=== PATIENT | male | born 1955 | race African-American/Black ===

== ENCOUNTER 2018-09-09 23:12 | Observation (INO) | payer BC ==
[~2018-09-09] VITALS: Ht 180.3 cm; Wt 104.7 kg
--- NOTE | ~2018-09-09 | HEMODYNAMI ---
PATIENT:SARAH HECTOR MEDICAL RECORD: [id number] : 55 LOCATION:[facility] D2109 ADMISSION DATE: 09/10/18 Generatedon:09/10/201811:17 Patient name: SARAH HECTOR Patient #: [id number] SSN: : 1955 Date of study: 09/10/2018 Page: Of Hemodynamic Procedure Report Patient Data Patient Demographics Procedure consent was obtained First Name: SARAH Gender: Male Last Name: KRUNAL : 1955 Patient #: [id number] Age: 63 year(s) Race: Black Additional ID: [id number] Contact details Address: [address] [place] [address] State: [place] City: [place] Zip code: [address] Past Medical History Allergies: No known allergies Admission Admission Data Admission Date: 09/10/2018 Admission Time: 0:17 Room #: 2109 Lab Results Lab Result Date: 09/10/2018 Lab Result Time: 0:00 Biochemistry Name Units Result Min Max BUN mg/dl 13 --(--*-)-- 7 18 Creatinine mg/dl 1 --(--*-)-- 0.6 1.3 CBC Name Units Result Min Max Hematocrit % 37.5 *-(----)-- 42 54 Hemoglobin g/dl 13.1 -*(----)-- 13.5 17.5 Procedure Procedure Types Cath Procedure Diagnostic Procedure [facility] w/Coronaries Sedation Charges Moderate Sedation up to 30 minutes PCI Procedure Coronary Stent Coronary Stent Initial Procedure Description Procedure Date Procedure Date: 09/10/2018 Procedure Start Time: 10:38 Procedure End Time: 11:10 Procedure Staff Name Function Larry Zavala MD Performing Physician Mercedes Alejandre RT Monitor July Rust RT Scrub Puja Hector RN Nurse Procedure Data Cath Procedure Fluoroscopy Diagnostic fluoroscopy Total fluoroscopy Time: 7.1 time: 7.1 min min Diagnostic fluoroscopy Total fluoroscopy dose: dose: 1779 mGy 1779 mGy Contrast Material Contrast Material Type Amount (ml) Isovue 300 186 Entry Location Entry Primary Successful Side Size Upsize Upsize Entry Closure Succes sful Closure Location (Fr) 1 (Fr) 2 (Fr) Remarks Device Remarks Femoral Right 5 Fr 6 Fr Exoseal artery Short Estimated blood loss: 10 ml Diagnostic catheters Device Type Used For End Catheter Placement MULTIPACK JL 4.0 5Fr Procedure catheter DIAGNOSTIC JL 5 5Fr Procedure catheter ([id number]) MULTIPACK 3DRC 5Fr Procedure catheter MULTIPACK Pigtail 5 Fr Procedure catheter Procedure Complications No complications Procedure Medications Medication Administration Route Dosage 0.9% NaCl I.V. 100 ml/hr Oxygen etCO2 Nasal cannula 2 l/min Lidocaine 2% added to field 20 Heparin Flush Bag added to field 2 bags (1000units/500ml NS) Versed I.V. 2 mg Fentanyl I.V. 50 mcg Zofran I.V. 4 mg Fentanyl I.V. 50 mcg Heparin Bolus I.V. 5000 units Plavix P.O. 75 mg Integrilin (Bolus I.C. 9.5 ml 2mg/ml) Hemodynamics Rest HGB: 13.1 (g/dl) Heart Rate: 75 (bpm) Pressure Samples Time Site Value (mmHg) Purpose Heart Use Rate(bpm) 10:45 LV 92/18,17 Snapshot 80 Gradients Valve Time Site Site Mean SEP/DFP Peak To Heart Use 1 2 (mmHg) (sec/min) Peak Rate (mmHg) (bpm) Aortic 10:45 LV AO 98 Snapshots Pre Cath Intra NCS Post Cath Vital Signs Time Heart Resp SPO2 etCO2 NIBP (mmHg) Rhythm Pain Sedation Rate (ipm) (%) (mmHg) Status Level (bpm) 10:18:07 66 22 96 26 142/89(112) NSR 0 (11) 10(A) , No pain 10:22:23 74 23 98 26.1 134/85(110) NSR 0 (11) 10(A) , No pain 10:26:31 79 15 96 26.8 116/84(103) NSR 0 (11) 10(A) , No pain 10:31:18 73 16 98 11.9 123/82(101) NSR 0 (11) 10(A) , No pain 10:35:29 71 14 99 8.9 122/77(101) NSR 0 (11) 10(A) , No pain 10:39:42 73 14 99 17.1 126/79(105) NSR 0 (11) 10(A) , No pain 10:44:36 75 19 98 30.6 124/85(97) NSR 0 (11) 9(A) , No pain 10:48:50 75 15 97 31.3 127/79(96) NSR 0 (11) 9(A) , No pain 10:52:58 72 17 96 29.1 114/76(94) NSR 0 (11) 9(A) , No pain 10:57:10 73 18 97 25.3 121/76(89) NSR 0 (11) 9(A) , No pain 11:01:22 73 19 96 25.3 119/77(99) NSR 0 (11) 9(A) , No pain 11:05:34 74 15 98 28.3 130/74(98) NSR 0 (11) 10(A) , No pain 11:09:46 74 15 98 28.3 122/83(96) NSR 0 (11) 10(A) , No pain Medications Time Medication Route Dose Verified Delivered Reason Notes Effectiveness by by 10:17:05 0.9% NaCl I.V. 100 Larry Puja used for ml/hr [place] [facility] procedure MD MONZON 10:17:13 Oxygen etCO2 2 Larry Puja used for Nasal l/min [facility] procedure cannula MD MONZON 10:17:20 Lidocaine 2% added 20ml Larry Juarez for local to vial [facility] anesthetic field MD CUBA 10:17:25 Heparin Flush added 2 Larry Larry used for Bag to bags [facility] procedure (1000units/500ml field MD CUBA NS) 10:36:04 Versed I.V. 2 mg Larry Puja for sedation [facility] Hector MD RN 10:36:09 Fentanyl I.V. 50 Larry Puja for sedation mcg [facility] Adrian Hector MD RN 10:40:24 Fentanyl I.V. 50 Larry Puja for sedation mcg [facility] Hector MD RN 10:44:20 Zofran I.V. 4 mg Larry Puja for nausea [facility] Hector MD RN 10:48:28 Heparin Bolus I.V. 5000 Larry Puja for verif ied units [facility] Hector anticoagulation with Dr. MD NA Wallace 10:50:53 Plavix P.O. 75 mg Larry Luo for [facility] Hector antiplatelet RN therapy 10:58:02 Integrilin I.C. 9.5 Larry Juarez for (Bolus 2mg/ml) ml [facility] Adrian Zavala antiplatelet MD CUBA therapy Procedure Log Time Note 10:02:14 Signed procedure consent form obtained from patient. 10:02:16 Diagnostic Cath status Elective 10:02:17 Time tracking: Regular hours (M-F 7:00 - 5:00) 10:02:22 Plan of Care:Hemodynamics will remain stable., Cardiac rhythm will remain stable., Comfort level will be maintained., Respiratory function will remain adequate., Patient/ family verbilizes understanding of procedure., Procedure tolerated without complication., Recovers from procedure without complications.. 10:02:31 July Rust RT(R) sent for patient. Start room use. 10:12:35 Patient received from Med II to CCL 1 Alert and oriented. Tansferred to table in Supine position. 10:12:37 Warm blankets applied, and will hugger turned on for patient comfort. 10:12:37 Correct patient and procedure confirmed by team. 10:12:38 ECG and BP/O2 sat monitors applied to patient. 10:16:52 Vital chart was started 10:17:05 0.9% NaCl 100 ml/hr I.V. was administered by Puja Hector RN; used for procedure; 10:17:13 Oxygen 2 l/min etCO2 Nasal cannula was administered by Puja Hector RN; used for procedure; 10:17:20 Lidocaine 2% 20ml vial added to field was administered by Larry Zavala MD; for local anesthetic; 10:17:25 Heparin Flush Bag (1000units/500ml NS) 2 bags added to field was administered by Larry Zavala MD; used for procedure; 10:20:49 WENT GROIN ON PATIENT DUE TO LABS PER DR. WALLACE 10:22:30 Baseline sample Acquired. 10:22:35 Rhythm: sinus rhythm 10:22:37 Full Disclosure recording started 10:22:38 Pre-procedure instructions explained to patient. 10:22:40 Pre-op teaching completed and patient verbalized understanding. 10:22:43 Family in patients room. 10:22:48 Patient allergic to No known allergies 10:22:50 Patient NPO since Midnight. 10:22:52 Is patient on blood thinner?No 10:22:53 Patient diabetic? No. 10:22:57 Previous problem with sedation/anesthesia? No ? 10:22:59 Snore? No 10:23:00 Sleep apnea? No 10:23:01 Deviated septum? No 10:23:02 Opens mouth fully? Yes 10:23:03 Sticks out tongue? Yes 10:23:05 Airway obstruction? No ? 10:23:16 Dentures? Yes PARTIAL IN 10:23:22 Pre procedure: right dorsailis pedis pulse 1+ Palpable, but thready & weak; easily obliterated 10:23:28 IV patent on arrival in left antecubital with 0.9% NaCl at [facility]. 10:24:02 Lab Result : BUN 13 mg/dl 10:24:02 Lab Result : Hemoglobin 13.1 g/dl 10:24:02 Lab Result : Creatinine 1 mg/dl 10:24:02 Lab Result : Hematocrit 37.5 % 10:24:18 Lab results completed and on chart. 10:24:22 Right groin area was prepped with chlora-prep and draped in sterile fashion 10:24:23 Alarms reviewed by R. N. 10:24:23 Sharps counted by scrub and verified by R.N. 10:24:29 Use device set Femoral Dx 10:24:30 ACIST Syringe (94933) opened to sterile field. 10:24:31 Bag Decanter (2002S) opened to sterile field. 10:24:34 ACIST Manifold (43217) opened to sterile field. 10:24:35 ACIST Hand Control (14004) opened to sterile field. 10:24:35 Tegaderm 4 x 4 (1626W) opened to sterile field. 10:24:37 Medline Cath Pack ([id number]) opened to sterile field. 10:24:37 DIAGNOSTIC WIRE .035 260cm J wire (099134) opened to sterile field. 10:24:38 DIAGNOSTIC Multipack 5Fr catheter set ([id number]) opened to sterile field. 10:24:39 SHEATH 5FR [place] (AKK597) opened to sterile field. 10:35:34 Zero performed for pressure channel P1 10:35:36 --------ALL STOP TIME OUT------ 10:35:37 Final Timeout: patient, procedure, and site verified with staff and physician. All members of the team are in agreement. 10:35:39 Right groin site verified by team. 10:35:46 Maximum allowable Isovue 300 dose 300ml. Physician notified. (300ml for normal creatinines. For patients with creatinine of 1.7 or higher multiply weight(kg) x 5 divided by creatinine.) 10:35:49 Fire Safety Assessment: A--An alcohol-based skin anteseptic being used preoperatively., C--Open oxygen or nitrous oxide is being used., D--An ESU, laser, or fiber-optic light is being used. 10:35:53 Physical assessment completed. ASA score P 2 - A patient with mild systemic disease as per Larry Zavala MD. 10:35:56 Sedation plan: IV Moderate Sedation Medication:Versed, Fentanyl 10:36:04 Versed 2 mg I.V. was administered by Puja Hector RN; for sedation; 10:36:09 Fentanyl 50 mcg I.V. was administered by Puja Hector RN; for sedation; 10:37:36 Procedure started. 10:38:05 Local anesthetic to right femoral artery with Lidocaine 2% by Larry Zavala MD.INITIAL ACCESS ONLY 10:38:35 A 5 Fr sheath was inserted into the Right Femoral artery 10:38:49 A MULTIPACK JL 4.0 5Fr catheter was advanced over the wire and used for Procedure. 10:39:48 Catheter removed. 10:39:59 UNABLE TO ENGAGE LCA 10:40:20 A DIAGNOSTIC JL 5 5Fr catheter ([id number]) was advanced over the wire and used for Procedure. 10:40:24 Fentanyl 50 mcg I.V. was administered by Puja Hector RN; for sedation; 10:41:58 LCA angiography performed. 10:42:01 Catheter removed. 10:42:35 A MULTIPACK 3DRC 5Fr catheter was advanced over the wire and used for Procedure. 10:44:20 Zofran 4 mg I.V. was administered by Puja Hector RN; for nausea; 10:44:31 RCA angiography performed. 10:44:32 Catheter removed. 10:44:38 A MULTIPACK Pigtail 5 Fr catheter was advanced over the wire and used for Procedure. 10:45:33 LV gram done using BORDEN 10:45:35 Injector settings: Ml/sec: 10, Volume: 20, 10:45:39 LV hemodynamics recorded. 10:45:52 EF : 30 % 10:45:53 Catheter removed. 10:46:34 SHEATH 6FR [place] (JIV474) opened to sterile field. 10:46:34 WHISPER 300cm guide wire ([id number]) opened to sterile field. 10:46:35 INFLATOR Merit BasixCompak (XS6499) opened to sterile field. 10:47:12 Sheath upsized to a 6 Fr Short. 10:47:27 GUIDE 6FR JL 5.0 catheter ([id number]) opened to sterile field. 10:48:28 Heparin Bolus 5000 units I.V. was administered by Puja Hector RN; for anticoagulation; verified with Dr. Wallace 10:48:38 6 Fr JL 5 guide catheter was inserted over the wire 10:50:41 WHIPSER 300 wire advanced. 10:50:53 Plavix 75 mg P.O. was administered by Puja Hector RN; for antiplatelet therapy; 10:51:45 Wire advanced across lesion. 10:53:54 Inflate balloon Inflation number: 1 A EUPHORA 2.25 x 15 Balloon ([id number]) was prepped and advanced across the Mid LAD , then inflated to 14 SABRINA for 0:15 (min:sec) . 10:54:28 Inflation number: 2 The EUPHORA 2.25 x 15 Balloon ([id number]) was reinflated across the Mid LAD , to 14 SABRINA for 0:15 (min:sec) . 10:54:59 Inflation number: 3 The EUPHORA 2.25 x 15 Balloon ([id number]) was reinflated across the Mid LAD , to 14 SABRINA for 0:00 (min:sec) . 10:56:47 Balloon removed over the wire. 10:58:02 Integrilin (Bolus 2mg/ml) 9.5 ml I.C. was administered by Larry Zavala MD; for antiplatelet therapy; 11:03:55 Place stent Inflation Number: 4 A ASHLEY OTW 3.0 x 38 stent ([id number]) was prepped and advanced across the Mid LAD . The stent was deployed at 16 SABRINA for 0:15 (min:sec) . 11:05:25 Inflation number: 5 The stent balloon was then re-inflated across the Mid LAD to 8 SABRINA for 0:00 (min:sec) . 11:06:38 Stent catheter was removed intact over wire. 11:06:39 Wire removed. 11:06:39 Guide catheter removed. 11:06:47 EXOSEAL 6Fr (EX600) opened to sterile field. 11:07:32 Sheath removed intact; hemostasis achieved with Exoseal to the Right Femoral artery. 11:07:35 Procedure ended.(Physican Out) 11:07:45 Fluoroscopy time 07.10 minutes. 11:07:49 Flurop Dose total: 1779 11:07:49 Fluoroscopy dose: 1779 mGy 11:07:52 Contrast amount:Isovue 300 186ml. 11:07:54 Sharps counted by scrub and verified by R.N. 11:07:56 Post-op/insertion site Right Femoral artery dressed using a 4 x 4 and Tegaderm. 11:07:59 Post-procedure physical assessment completed. ASA score P 2 - A patient with mild systemic disease as per Larry Zavala MD. 11:08:02 Post procedure rhythm: sinus rhythm 11:08:04 Estimated blood loss: 10 ml 11:08:06 Post procedure instruction explained to patient.Patient verbalizes understanding. 11:08:06 Patient needs reinforcement of post procedure teaching. 11:08:45 Procedure type changed to Cath procedure, Diagnostic procedure, LHC, LHC w/Coronaries, Sedation Charges, Moderate Sedation up to 30 minutes, PCI procedure, Coronary Stent, Coronary Stent Initial 11::53 Procedure and supply charges have been captured, reviewed, submitted and are correct. 11:09:55 Procedure Complication : No complications 11:09:59 Vital chart was stopped 11:10:00 See physician's report for complete and final results. 11:10:01 Report given to Med II. 11:10:06 Patient transfered to Med II with Bed. 11:10:08 Procedure ended. 11::08 Full Disclosure recording stopped 11:10:11 End room use (Document Last) Intervention Summary Intervention Notes Time ActionType Lesion and Equipment Action# Pressure Duration Attributes Used 10:53:54 Inflate Mid LAD EUPHORA 2.25 1 14 00:15 balloon x 15 Balloon ([id number]) 10:54:28 Reinflate Mid LAD EUPHORA 2.25 2 14 00:15 balloon x 15 Balloon ([id number]) 10:54:59 Reinflate Mid LAD EUPHORA 2.25 3 14 00:00 balloon x 15 Balloon ([id number]) 11:03:55 Place stent Mid LAD ASHLEY OTW 3.0 4 16 00:15 x 38 stent ([id number]) 11:05:25 Reinflate Mid LAD ASHLEY OTW 3.0 5 8 00:00 stent x 38 stent balloon ([id number]) Device Usage Item Name Manufacture Quantity Catalog Hospital Part Current Mini mal Lot# / Number Charge Number Stock Stock Serial# Code ACIST Syringe Acist 1 20586 815815 890846 239842 20 (37818) Medical Systems Inc Bag Decanter Microtek 1 2001S 054551 70605 304862 5 (2001S) Medical Inc. ACIST Acist 1 30968 642171 361968 538025 5 Manifold Medical (54592) Systems Inc ACIST Hand Acist 1 92428 463740 247216 798344 5 Control Medical (27857) Systems Inc Tegaderm 4 x 3M 1 1626W 800033 146530 218321 5 4 (1626W) Medline Cath Medline 1 [id number] 509998 47150 613161 5 Pack ([id number]) DIAGNOSTIC St Wiley 1 116168 929101 549328 126135 30 WIRE .035 260cm J wire (689681) DIAGNOSTIC Cardinal 1 IR2559 671231 22346 115509 30 Multipack 5Fr Health catheter set (ZY0937) SHEATH 5FR Terumo 1 WKU267 272027 579591 874603 5 [place] (IOX632) MULTIPACK JL Cardinal 1 354633 5 4.0 5Fr Health catheter DIAGNOSTIC JL Cardinal 1 [id number] 659051 789161 750291 5 5 5Fr Health catheter (292562D) MULTIPACK Cardinal 1 757105 5 3DRC 5Fr Health catheter MULTIPACK Cardinal 1 227439 5 Pigtail 5 Fr Health catheter SHEATH 6FR Terumo 1 UFT149 883828 299860 753032 40 [place] (WLG307) WHISPER 300cm Abreu 1 [id number] 498075 614020 481910 5 guide wire Vascular ([id number]) INFLATOR [facility] 1 UX7409 841626 357187 917853 15 [facility] Medical BasixCompak (OD0234) GUIDE 6FR JL Medtronic 1 [id number] 307030 78666 645474 1 5.0 catheter (FQ7CI78) EUPHORA 2.25 Medtronic 1 [id number] 264626 724867 999831 5 [id number] x 15 Balloon ([id number]) ASHLEY OTW 3.0 Medtronic 1 [id number] 500717 0500155 000507 5 [id number] x 38 stent ([id number]) EXOSEAL 6Fr Cardinal 1 EX600 736434 081043 336167 10 (EX600) Health Signature Audit [place] Stage Time Signature Unsigned Intra-Procedure 09/10/2018 Mercedes Alejandre 11:17:14 AM RT(R) Signatures Monitor : Mercedes Alejandre Signature : RT Date : Time : [place] [id number] [place] [address]
--- NOTE | ~2018-09-09 | HEMODYNAMI ---
PATIENT:SARAH HECTOR MEDICAL RECORD: [id number] : 55 LOCATION:[facility] D.2109 ADMISSION DATE: 09/10/18 Generatedon:09/13/201814:29 Patient name: SARAH HECTOR Patient #: [id number] SSN: : 1955 Date of study: 09/13/2018 Page: Of Hemodynamic Procedure Report Patient Data Patient Demographics Procedure consent was obtained First Name: SARAH Gender: Male Last Name: KRUNAL : 1955 Patient #: [id number] Age: 63 year(s) Race: Black Additional ID: [id number] Contact details [address]: [address] [place] [address] State: [place] City: [place] Zip code: [address] Past Medical History Allergies: No known allergies Admission Admission Data Admission Date: 09/10/2018 Admission Time: 0:17 Room #: D2109 Lab Results Lab Result Date: 09/10/2018 Lab Result Time: 0:00 Biochemistry Name Units Result Min Max BUN mg/dl 13 --(--*-)-- 7 18 Creatinine mg/dl 1 --(--*-)-- 0.6 1.3 CBC Name Units Result Min Max Hematocrit % 37.5 *-(----)-- 42 54 Hemoglobin g/dl 13.1 -*(----)-- 13.5 17.5 Procedure Procedure Types Cath Procedure PCI Procedure Coronary Stent Coronary Stent Initial Procedure Description Procedure Date Procedure Date: 09/13/2018 Procedure Start Time: 14:17 Procedure End Time: 14:28 Procedure Staff Name Function Larry Zavala MD Performing Physician Colette Eng RT Monitor Akhil Agarwal RT Scrub Uli Mc RN Nurse Procedure Data Cath Procedure Fluoroscopy Diagnostic fluoroscopy Total fluoroscopy Time: 1.7 time: 1.7 min min Diagnostic fluoroscopy Total fluoroscopy dose: 252 dose: 252 mGy mGy Contrast Material Contrast Material Type Amount (ml) Isovue 370 30 Entry Location Entry Primary Successful Side Size Upsize Upsize Entry Closure Succes sful Closure Location (Fr) 1 (Fr) 2 (Fr) Remarks Device Remarks Femoral Right 6 Fr Exoseal artery Short Estimated blood loss: 5 ml Procedure Complications No complications Procedure Medications Medication Administration Route Dosage 0.9% NaCl I.V. 100 ml/hr Oxygen etCO2 Nasal cannula 2 l/min Heparin Flush Bag added to field 2 bags (1000units/500ml NS) Lidocaine 2% added to field 20 Versed I.V. 2 mg Fentanyl I.V. Heparin Bolus I.V. 5000 units Hemodynamics Rest HGB: 13.1 (g/dl) Heart Rate: 78 (bpm) Snapshots Pre Cath Intra NCS Post Cath Vital Signs Time Heart Resp SPO2 etCO2 NIBP Rhythm Pain Sedation Rate (ipm) (%) (mmHg) (mmHg) Status Level (bpm) 14:04:56 76 24 100 29.2 127/80(91) NSR 0 (11) 10(A) , No pain 14:09:08 74 18 100 29.2 111/72(87) NSR 0 (11) 10(A) , No pain 14:13:12 75 16 97 31.3 109/77(88) NSR 0 (11) 10(A) , No pain 14:17:17 76 12 99 30.6 111/73(85) NSR 0 (11) 10(A) , No pain 14:21:23 79 18 98 28.4 105/75(83) NSR 0 (11) 10(A) , No pain 14:25:27 79 17 100 28.4 110/77(87) NSR 0 (11) 10(A) , No pain Medications Time Medication Route Dose Verified Delivered Reason Notes Effectiveness by by 14:04:23 0.9% NaCl I.V. 100 Uli Uli Per physician ml/hr Jesusita Mc RN RN 14:04:33 Oxygen etCO2 2 Uli Uli for low 02 sats Nasal l/min Jesusita Mc cannula RN RN 14:04:48 Heparin Flush added 2 Uli Uli used for Bag to bags Jesuista Mc procedure (1000units/500ml field NA RN NS) 14:05:01 Lidocaine 2% added 20ml Uli Uli for local to vial Jesusita cM anesthetic field MONZON RN 14:16:47 Versed I.V. 2 mg Uli Uli for sedation Jesusita Mc RN RN 14:16:54 Fentanyl I.V. Uli Mcnally for sedation Jesusita Mc RN RN 14:17:59 Heparin Bolus I.V. 5000 Uli Uli for units Jesusita Mc anticoagulation RN hoister Log Time Note 13:51:36 Informed consent obtained and on chart 13:51:39 Diagnostic Cath Status : Elective 13:52:04 Akhil Agarwal RT(R) sent for patient. Start room use. 13:52:05 Time tracking: Regular hours (M-F 7:00 - 5:00) 13:52:10 Plan of Care:Hemodynamics will remain stable., Cardiac rhythm will remain stable., Comfort level will be maintained., Respiratory function will remain adequate., Patient/ family verbilizes understanding of procedure., Procedure tolerated without complication., Recovers from procedure without complications.. 13:54:35 Patient received from Med II to CCL 2 Alert and oriented. Tansferred to table in Supine position. 13:54:36 Warm blankets applied, and will hugger turned on for patient comfort. 13:54:36 Correct patient and procedure confirmed by team. 13:54:37 ECG and BP/O2 sat monitors applied to patient. 14:03:56 Baseline sample Acquired. 14:03:56 Vital chart was started 14:04:00 Rhythm: sinus rhythm 14:04:01 Full Disclosure recording started 14:04:05 H&P Date Dictated: 09/13/2018 Within 30 days and on chart.. 14:04:06 Pre-procedure instructions explained to patient. 14:04:06 Pre-op teaching completed and patient verbalized understanding. 14:04:08 Family in waiting room. 14:04:09 Patient NPO since Midnight. 14:04:11 Is the patient allergic to Iodine/contrast media? No. 14:04:12 Was the patient premedicated? No 14:04:13 Is patient on blood thinner?Yes 14:04:20 ACC The patient was administered the following blood thiners within the last 24 hours: ACCPlavix 14:04:23 0.9% NaCl 100 ml/hr I.V. was administered by Uli Mc RN; Per physician; 14:04:33 Oxygen 2 l/min etCO2 Nasal cannula was administered by Uli Mc RN; for low 02 sats; 14:04:48 Heparin Flush Bag (1000units/500ml NS) 2 bags added to field was administered by Uli Mc RN; used for procedure; 14:05:01 Lidocaine 2% 20ml vial added to field was administered by Uli Mc RN; for local anesthetic; 14:14:47 Patient diabetic? No. 14:14:50 Previous problem with sedation/anesthesia? No ? 14:14:54 Snore? Yes 14:14:55 Sleep apnea? No 14:14:56 Deviated septum? No 14:14:57 Opens mouth fully? Yes 14:14:57 Sticks out tongue? Yes 14:14:59 Airway obstruction? No ? 14:15:02 Dentures? Yes in tight 14:15:05 Pre procedure: right dorsailis pedis pulse 2+ Normal; easily identifiable; not easily obliterated 14:15:07 Pre procedure: left dorsailis pedis pulse 2+ Normal; easily identifiable; not easily obliterated 14:15:09 Patient pain scale 0/10 ?. 14:15:14 IV patent on arrival in left forearm with 0.9% NaCl at [facility]. 14:15:16 Lab results completed and on chart. 14:15:20 Right groin area was prepped with chlora-prep and draped in sterile fashion 14:15:21 Alarms reviewed by R. N. 14:15:22 Sharps counted by scrub and verified by R.N. 14:15:23 Physician arrived 14:15:24 --------ALL STOP TIME OUT------ 14:15:24 Final Timeout: patient, procedure, and site verified with staff and physician. All members of the team are in agreement. 14:15:26 Right groin site verified by team. 14:15:29 Maximum allowable Isovue 370 dose 300ml. Physician notified. (300ml for normal creatinines. For patients with creatinine of 1.7 or higher multiply weight(kg) x 5 divided by creatinine.) 14:15:32 Fire Safety Assessment: A--An alcohol-based skin anteseptic being used preoperatively., C--Open oxygen or nitrous oxide is being used., D--An ESU, laser, or fiber-optic light is being used. 14:15:35 Physical assessment completed. ASA score P 2 - A patient with mild systemic disease as per Larry Zavala MD. 14:15:39 Sedation plan: IV Moderate Sedation Medication:Versed, Fentanyl 14:15:42 Use device set Femoral Dx 14:15:43 ACIST Syringe (92084) opened to sterile field. 14:15:44 Bag Decanter (2002S) opened to sterile field. 14:15:44 Medline Cath Pack ([id number]) opened to sterile field. 14:15:45 DIAGNOSTIC WIRE .035 260cm J wire (545981) opened to sterile field. 14:15:47 ACIST Hand Control (37528) opened to sterile field. 14:15:48 ACIST Manifold (26859) opened to sterile field. 14:15:50 Tegaderm 4 x 4 (1626W) opened to sterile field. 14:16:47 Versed 2 mg I.V. was administered by Uli Mc RN; for sedation; 14:16:54 Fentanyl I.V. was administered by Uli Mc RN; for sedation; 14:16:54 SHEATH 6FR [place] (THS807) opened to sterile field. 14:16:56 INFLATOR Merit BasixCompak (UG7644) opened to sterile field. 14:16:56 WHISPER 300cm guide wire ([id number]) opened to sterile field. 14:16:57 GUIDE 6FR HS II catheter ([id number]) opened to sterile field. 14:17:01 Procedure started. 14:17:04 Local anesthetic to right femoral artery with Lidocaine 2% by Larry Zavala MD.INITIAL ACCESS ONLY 14:17:13 A 6 Fr Short sheath was inserted into the Right Femoral artery 14:17:30 6 Fr hs 2 guide catheter was inserted over the wire 14:17:38 whisper wire advanced. 14:17:59 Heparin Bolus 5000 units I.V. was administered by Uli Mc RN; for anticoagulation; 14:18:39 Wire advanced across lesion. 14:23:24 Place stent Inflation Number: 1 A ASHLEY RX 3.0 x 18 stent ([id number]) was prepped and advanced across the Mid RCA 90. The stent was deployed at 20 SABRINA for 0:30 (min:sec) . 14:23:49 Stent catheter was removed intact over wire. 14::49 Wire removed. 14:23:50 Guide catheter removed. 14:24:01 EXOSEAL 6Fr (EX600) opened to sterile field. 14::55 Sheath removed intact; hemostasis achieved with Exoseal to the Right Femoral artery. 14:24:58 Procedure ended.(Physican Out) 14:25:23 Fluoroscopy time 01.70 minutes. 14:25:30 Fluoroscopy dose: 252 mGy 14:25:30 Flurop Dose total: 252 14::51 Contrast amount:Isovue 370 30ml. 14:25:54 Sharps counted by scrub and verified by R.N. 14::55 Insertion/operative site no bleeding no hematoma. 14::58 Post-op/insertion site Right Femoral artery dressed using a 4 x 4 and Tegaderm. 14:26:01 Post right femoral artery:stable 14:26:03 Post Procedure Pulses reassessed and unchanged 14:26:07 Post procedure rhythm: unchanged. 14:26:10 Estimated blood loss: 5 ml 14:26:11 Post procedure instruction explained to patient.Patient verbalizes understanding. 14:26:12 Patient needs reinforcement of post procedure teaching. 14:26:43 Procedure type changed to Cath procedure, PCI procedure, Coronary Stent, Coronary Stent Initial 14::44 Procedure and supply charges have been captured, reviewed, submitted and are correct. 14::49 Procedure Complication : No complications 14:26:51 Vital chart was stopped 14:26:52 See physician's report for complete and final results. 14:28:12 Report given to [facility]. 14:28:15 Patient transfered to [facility] with Stretcher. 14:28:17 Procedure ended. 14:28:17 Full Disclosure recording stopped 14:28:36 ACC-PCI Only Patient was given prescriptions, or instructed by Larry Zavala MD to start/continue the following medications upon discharge: Plavix 14:28:38 End room use (Document Last) Intervention Summary Intervention Notes Time ActionType Lesion and Equipment Used Action# Pressure Duration Attributes 14:23:24 Place stent Mid RCA ASHLEY RX 3.0 x 1 20 00:30 18 stent ([id number]) Device Usage Item Name Manufacture Quantity Catalog Hospital Part Current [facility] Lot# / Number Charge Number Stock Stock Serial# Code ACIST Syringe Acist 1 77182 137693 113573 390538 20 (58760) Medical Systems Inc Bag Decanter Microtek 1 2001S 460171 69987 279788 5 (2001S) Medical Inc. Medline Cath Medline 1 [id number] 736108 10918 174811 5 Pack ([id number]) DIAGNOSTIC St Wiley 1 845937 215738 583441 070997 30 WIRE .035 260cm J wire (163329) ACIST Hand Acist 1 93061 145867 262826 798137 5 Control Medical (57314) Systems Inc ACIST Manifold Acist 1 09060 139768 920548 753377 5 (63549) Medical Systems Inc Tegaderm 4 x 4 3M 1 1626W 248978 748353 965213 5 (1626W) SHEATH 6FR Terumo 1 [id number] 664239 413997 959323 40 [place] (VPB705) INFLATOR Merit Merit 1 KL7301 121780 364367 078072 15 [facility] ([id number]) WHISPER 300cm Abreu 1 [id number] 705490 380460 197456 5 guide wire Vascular ([id number]) GUIDE 6FR HS Medtronic 1 [id number] 896561 12678 026754 1 II catheter ([id number]) ASHLEY RX 3.0 x Medtronic 1 [id number] 339612 1126834 715179 5 [id number] 18 stent ([id number]) EXOSEAL 6Fr Cardinal 1 EX600 852672 872704 984517 10 (EX600) Health Signature Audit [place] Stage Time Signature Unsigned Intra-Procedure 09/13/2018 Colette Eng 2:29:12 PM RT(R) Signatures Monitor : Colette Eng RT Signature : Date : Time : [facility] [address] [place] [address]
[2018-09-09] MEDS ORDERED: VERAPAMIL HCL40 MG PO (23:21)
[2018-09-09] MEDS ORDERED: CALAN SR240 MG PO (23:22)
--- NOTE | 2018-09-09 23:28 | NUR ---
ASA 325 AND NITRO X 2 GIVEN AT [facility] WITH NO RELIEF.
[2018-09-10] VITALS (8 sets, daily range): BP systolic 105–130; BP diastolic 62–89; Ht 180.3 cm; Wt 104.7 kg
[2018-09-10 01:01] LABS: BASOPHILS 0.1 % (0-2); EOSINOPHILS 0.1 % (0-7); HEMATOCRIT 37.5 % (42.0-54.0); HEMOGLOBIN 13.1 g/dL (13.5-17.5); IMMATURE GRANULOCYTES 0.2 % (0-5); LYMPHOCYTES 16.5 % (15-50); MCH 31.2 pg (26.0-34.0); MCHC 34.9 g/dL (31.0-37.0); MCV 89.3 fL (80.0-100.0); MEAN PLATELET VOLUME 11.5 fL (7.4-10.4); MONOCYTES 6.1 % (2-11); PLATELET COUNT 145 10x3/uL (130-400); WBC 9.3 10x3/uL (4.8-10.8)
[2018-09-10 01:37] LABS: ALBUMIN 3.6 g/dL (3.4-5.0); ALKALINE PHOSPHATASE 59 U/L (46-116); ALT (SGPT) 33 U/L (10-68); BILIRUBIN - TOTAL 0.66 mg/dL (0.2-1.3); CALC OSMOLALITY 266 mosm/kg (275-300); CARBON DIOXIDE 21.9 mmol/L (21.0-32.0); CHLORIDE - SERUM 100 mmol/L (98-107); GLUCOSE 119 mg/dL (74-106); POTASSIUM - SERUM 4.7 mmol/L (3.5-5.1); PRO BNP 251 pg/mL (0-125); PROTEIN - SERUM 7.8 g/dL (6.4-8.2); SODIUM 133 mmol/L (136-145); UREA NITROGEN 13 mg/dL (7-18)
--- NOTE | 2018-09-10 01:40 | NUR ---
FROM ER VIA STRETCHER DENIES CP AT THIS TIME SKIN WARM AND DRY LCTA BOWEL SOUNDS X4 AND PULSES INTACT VS 105/62 82 22 98.3 97% RA
[2018-09-10 01:50] LABS: CALCIUM 7.2 mg/dL (8.5-10.1); CREATINE KINASE 918 UL (21-232)
[2018-09-10 01:51] LABS: eGFR NON AFRICAN AMERICAN 80 mL/min (90-120)
[2018-09-10 01:52] LABS: CKMB 2.6 U/L (0.0-3.6); TROPONIN-I 0.121 ng/mL (0.000-0.060)
--- NOTE | 2018-09-10 02:02 | NUR ---
TROPONIN NOTED AT .121 PT DENIES CP
[2018-09-10 07:19] LABS: CKMB 138.9 U/L (0.0-3.6); CREATINE KINASE 1531 UL (21-232)
--- NOTE | 2018-09-10 07:27 | NUR ---
ROUNDING DONE WITH PATIENT LAYING ON RIGHT SIDE, MALE MEMBER AT BEDSIDE. NPO STATUS AT THIS TIME. ON HEART MONITOR SHOWING SR, HR 74. LEFT AC PIV SEEN WITH SALINE LOCK. NEEDS ANOTHER EKG AT 11:00. DENIES ANY CHEST PAIN AT THIS TIME.
--- NOTE | 2018-09-10 07:58 | NUR ---
REFUSES SCD';S, UP AD BILLY.
[2018-09-10 08:41] LABS: BASOPHILS 0.1 % (0-2); EOSINOPHILS 0 % (0-7); HEMATOCRIT 36.1 % (42.0-54.0); HEMOGLOBIN 12.8 g/dL (13.5-17.5); IMMATURE GRANULOCYTES 0.2 % (0-5); LYMPHOCYTES 20.4 % (15-50); MCH 31.7 pg (26.0-34.0); MCHC 35.5 g/dL (31.0-37.0); MCV 89.4 fL (80.0-100.0); MEAN PLATELET VOLUME 12.1 fL (7.4-10.4); MONOCYTES 7.7 % (2-11); NEUTROPHILS 71.6 % (40-80); PLATELET COUNT 169 10x3/uL (130-400); RBC 4.04 10x6/uL (4.20-6.10); RDW 11.9 % (11.5-14.5); WBC 8.4 10x3/uL (4.8-10.8)
[2018-09-10 08:46] LABS: ANION GAP 13.7 mmol/L (8-16); CALCIUM 8.6 mg/dL (8.5-10.1); CARBON DIOXIDE 23.1 mmol/L (21.0-32.0); CREATININE - SERUM 1.1 mg/dL (0.6-1.3); POTASSIUM - SERUM 3.8 mmol/L (3.5-5.1)
--- NOTE | 2018-09-10 09:11 | NUR ---
PRE-OP MDS GIVEN, PLACED ON NASAL CANNULA AT 2 L PER,
--- NOTE | 2018-09-10 09:47 | CN ---
PATIENT NAME:GABBY HECTOR MEDICAL RECORD: [id number] : 55 LOCATION:D. D.2109 ADMIT DATE: 09/10/18 ACCOUNT: [id number] CONSULTING PHYSICIAN: IRMA VO MD REFERRING PHYSICIAN: SALVADOR LEE MD DATE OF CONSULTATION: 09/10/2018 HISTORY OF PRESENT ILLNESS: Gabby Hector is a 63-year-old gentleman with no known history of coronary artery disease, has a history of hypertension, strong family history of coronary artery disease, presented to [facility] with chest pain and also ____ sweating, chest tightness, pressure radiating to the jaw, found to have mildly elevated troponin at the [facility], referred here. Here, he had a further increase consistent with NSTEMI, he does have ST-T changes inferiorly. We are asked to see him concerning his cardiovascular status. PAST MEDICAL HISTORY: History of hypertension. ALLERGIES: None known. MEDICATIONS: Verapamil 240 mg p.o. every day. SOCIAL HISTORY: Nonsmoker, nondrinker. Works licensed clinician with heavy equipment. Easily takes care of all his ADLs, has been with an interesting sort of an exercise program, but is not currently. REVIEW OF SYSTEMS: The patient reports easy bruising but reports no swollen glands. The patient reports no fever, no night sweats, no significant weight gain, no significant weight loss. No significant exercise tolerance. The patient reports no dry eyes, no irritation, no vision change. Patient reports no difficulty hearing and no ear pain. Patient reports no frequent nose bleeds or nose and sinus problems. Patient reports on arm pain on exertion. No shortness of breath while lying down. No history of heart murmur. Patient reports no cough, no wheezing or coughing up blood. Patient reports no abdominal pain, no vomiting. Normal appetite. No diarrhea and not vomiting blood. No nausea and no constipation. Patient reports no incontinence. No difficulty urinating. No hematuria. No increased frequency. Patient reports no muscle aches. No weakness, no arthralgias, no back pain. No swelling of the extremities. Patient reports no abnormal mole, no jaundice, no rashes. Reports no loss of consciousness. No weakness and no numbness. No seizures, dizziness, or headaches. The patient reports no depression, no sleep disturbance, feeling safe in a relationship and no alcohol abuse. Patient reports on fatigue. Reports no runny nose or sinus pressure. No itching, no hives, and no frequent sneezing. PHYSICAL EXAMINATION: GENERAL: Pleasant. No acute distress. VITAL SIGNS: Blood pressure 119/72, pulse 70 and regular. HEENT: Normocephalic, atraumatic. NECK: No JVD or bruit. HEART: Regular, S4 gallop. LUNGS: Good air excursion. ABDOMEN: Soft, nontender. EXTREMITIES: Pulses 2+. No edema. CONSULT REPORT [id number] GABBY HECTOR DIAGNOSTIC DATA: ECG shows nonspecific ST changes, LVH versus ischemia. IMPRESSION: Non-ST elevation myocardial infarction, hypertension. PLAN: For angiography, intervention based on above. TRANSINT:[id number] Voice Confirmation ID: [id number] DOCUMENT ID: [id number] IRMA VO MD at 0947 CC: [id number] DICTATION DATE: 09/10/18 0844 POLICY MANAGER: 09/10/18 0921 ADM IN [place] [id number]
--- NOTE | 2018-09-10 10:03 | NUR ---
TO PAPER BAG INSPECTOR VIA BED.
--- NOTE | 2018-09-10 11:51 | NUR ---
1135-RETURNS FROM DELIVERY ROOM CLERK WITH DRESSING TO RIGHT GROIN, C/D/I.TO LAY FLAT X 4 HOURS.
--- NOTE | 2018-09-10 12:53 | NUR ---
PATIENT IS STILL VERY SLEEPY, STILL LAYING FLAT. FAMILY AT [facility].
--- NOTE | 2018-09-10 13:30 | NUR ---
ENESTRO AND LIPTOR MEDICATION PATIENT INSTRUCTIONS GIVEN TO FAMILY MEMBERS. PATIENT DENIES NEEDS.
[2018-09-10] MEDS ORDERED: PLAVIX75 MG PO (14:35)
[2018-09-10] MEDS ORDERED: LIPITOR20 MG PO (14:36)
[2018-09-10] MEDS ORDERED: ENTRESTO 24 MG1 EACH PO (14:36)
--- NOTE | 2018-09-10 15:04 | NUR ---
PAGE INTO DR VARELA TO SEE IF PATIENT CAN BE DISCHAGED.
--- NOTE | 2018-09-10 15:08 | NUR ---
DR VARELA TO CALL BACK AND TELL ME THAT DR VO WANTED PATIENT TO STAY OVER THE WEEKEND.
--- NOTE | 2018-09-10 15:37 | NUR ---
PATIENT SAT AT 30 DEGREES IN THE BED. NO BLEEDING SEEN TO RIGHT GROIN. FAMILY IS AT [facility].
--- NOTE | 2018-09-10 18:07 | NUR ---
NO SIGNS OF BLEEDING TO RIGHT GROIN. FAMLIY MEMBER AT [facility].
--- NOTE | 2018-09-10 19:42 | NUR ---
RECIEVED PT FROM NA REYNAGA. PT RESING IN BED ALERT AND ORIENTRED X4. R.GROIN SITE HAS BANDAGE C/D/I. THE AREA IS SOFT TO PALPATION. PT RUNNING 85 NORMAL SINUS ON TELEMETRY. PT BROTHER AT BEDSIDE. VITALS STABLE. NO S/S OF DISTRESS AT THIS TIME. BED LOW CALL LIGHT WITHIN REACH. WILL CONTINUE TO MONITOR.
--- NOTE | 2018-09-10 22:00 | NUR ---
PT WHATCHING TV WITH BROTHER AT THIS TIME. RR EVEN AND UNLABORED. PT DENIES ANY PAIN OR NEEDS AT THIS TIME. BED LOW CALL LIGHT WITHIN REACH. WILL CONTINUE TO MONITOR.
[2018-09-11] VITALS (9 sets, daily range): BP systolic 100–153; BP diastolic 58–88
--- NOTE | 2018-09-11 02:15 | NUR ---
I have reviewed this patient and I concur with the Shift Assessment completed by the Licensed Practical Nurse today this shift.
--- NOTE | 2018-09-11 02:53 | NUR ---
PT RESTING IN BED WITH EYES CLOSED RR EVEN AND UNLABORED. NO S/S OF DISTRESS. BED LOW CALL LIGHT WITHIN REACH. WILL CONTINUEN TO MONITOR.
--- NOTE | 2018-09-11 07:00 | NUR ---
RECEIVED REPORT. ASSUMED CARE OF PATIENT. RESTING IN BED WITH EYES OPEN. CALL LIGHT WITHIN REACH. PATIENT WITH MALE VISITOR AT BEDSIDE. PATIENT STATES HE IS WAITING FOR AM MEAL. RESP EVEN AND UNLABORD. NO DISTRESS. 86 SR ON TELEMETRY.
--- NOTE | 2018-09-11 09:30 | NUR ---
RESTING IN BED. TOLERATED PO MEDS WELL. CALL LIGHT WITHIN REACH. PATIENT BROTHER AT BEDSIDE. SHOWER COMPLETE. NO DISTRESS. DENIES NEEDS.
--- NOTE | 2018-09-11 16:02 | NUR ---
RESTING IN BED WITH EYES OPEN. FAMILY AT BEDSIDE. CALL LIGHT WITHIN REACH. NO DISTRESS.
--- NOTE | 2018-09-11 19:21 | NUR ---
REPORT RECIEVED AND ROUNDING COMPLETE. PATIENT LAYING IN BED HAS FAMILY AT BEDSIDE. PATIENT HAS RIGHT GROIN DRESSING THAT IS CLEAN, DRY AND INTACT. SITE IS SOFT. PATIENT HAS A RIGHT AC THAT IS SALINE LOCKED, NO S/SX OF INFILTRATION OR INFECTION. PATIENT STATES HAS NO NEEDS AT THIS TIME. CALL LIGHT WITHIN REACH AND BED IN LOWEST POSITON AND LOCKED.
[2018-09-11 23:30] LABS: APPEARANCE CLEAR (CLEAR); BILIRUBIN NEGATIVE (NEGATIVE); COLOR YELLOW (YELLOW); GLUCOSE NEGATIVE (NEGATIVE); KETONE NEGATIVE (NEGATIVE); NITRITE NEGATIVE (NEGATIVE); PROTEIN NEGATIVE (NEGATIVE); UROBILINOGEN NORMAL (NORMAL)
[2018-09-12 03:55] VITALS: BP 99/57
[2018-09-12 03:56] LABS: BASOPHILS 0.3 % (0-2); EOSINOPHILS 0.9 % (0-7); HEMATOCRIT 43.2 % (42.0-54.0); HEMOGLOBIN 15.2 g/dL (13.5-17.5); IMMATURE GRANULOCYTES 0.3 % (0-5); LYMPHOCYTES 33.3 % (15-50); MCH 31.8 pg (26.0-34.0); MCHC 35.2 g/dL (31.0-37.0); MCV 90.4 fL (80.0-100.0); MEAN PLATELET VOLUME 11.6 fL (7.4-10.4); MONOCYTES 13.6 % (2-11); NEUTROPHILS 51.6 % (40-80); PLATELET COUNT 150 10x3/uL (130-400); RBC 4.78 10x6/uL (4.20-6.10); RDW 12.2 % (11.5-14.5); WBC 9.3 10x3/uL (4.8-10.8)
[2018-09-12 04:02] LABS: ANION GAP 12.8 mmol/L (8-16); CALCIUM 8.5 mg/dL (8.5-10.1); CARBON DIOXIDE 24.1 mmol/L (21.0-32.0); POTASSIUM - SERUM 3.9 mmol/L (3.5-5.1)
[2018-09-12 04:05] LABS: CREATININE - SERUM 1.4 mg/dL (0.6-1.3)
--- NOTE | 2018-09-12 07:00 | NUR ---
RECIEVED REPORT. ASSUMED CARE OF PATIENT. CALL LIGHT WITHIN REACH. PATIENT LYING ON RIGHT LATERAL SIDE WITH EYES OPEN, RESP EVEN AND UNLABORED. DENIES NEEDS AT THIS TIME. NO DISTRESS.
[2018-09-12 08:02] VITALS: BP 97/55
--- NOTE | 2018-09-12 11:15 | NUR ---
RESTING IN BED. DENIES NEEDS. SHOWER COMPLETE. CALL LIGHT WITHIN REACH. NO DISTRESS.
[2018-09-12 11:50] VITALS: BP 111/62
--- NOTE | 2018-09-12 15:30 | NUR ---
VS STABLE. CALL LIGHT WITHIN REACH. DENIES NEEDS. NO DISTRESS.
[2018-09-12 16:03] VITALS: BP 93/60
--- NOTE | 2018-09-12 19:00 | NUR ---
PATIENT LAYING IN BED. NO COMPLAINTS AT THIS TIME. NO DISTRESS NOTED.
[2018-09-12 19:10] VITALS: BP 101/62
[2018-09-12 23:55] VITALS: BP 110/70
--- NOTE | 2018-09-13 01:00 | NUR ---
PATIENT LAYING IN BED. EYES CLOSED, CHEST RISING AND FALLING. NO DISTRESS NOTED.
--- NOTE | 2018-09-13 03:25 | NUR ---
I have reviewed this patient and I concur with the Shift Assessment completed by the Licensed Practical Nurse today this shift.
[2018-09-13 03:55] VITALS: BP 98/71
[2018-09-13 04:51] LABS: BASOPHILS 0.3 % (0-2); EOSINOPHILS 1.9 % (0-7); HEMOGLOBIN 13.7 g/dL (13.5-17.5); IMMATURE GRANULOCYTES 0.2 % (0-5); LYMPHOCYTES 34.6 % (15-50); MCH 31.3 pg (26.0-34.0); MCHC 34.3 g/dL (31.0-37.0); MCV 91.3 fL (80.0-100.0); MEAN PLATELET VOLUME 11.8 fL (7.4-10.4); MONOCYTES 11.5 % (2-11); NEUTROPHILS 51.5 % (40-80); PLATELET COUNT 149 10x3/uL (130-400); RBC 4.38 10x6/uL (4.20-6.10); RDW 12.1 % (11.5-14.5); WBC 8.8 10x3/uL (4.8-10.8)
[2018-09-13 05:16] LABS: ANION GAP 10.8 mmol/L (8-16); CALCIUM 8.4 mg/dL (8.5-10.1); CARBON DIOXIDE 26.9 mmol/L (21.0-32.0); CREATININE - SERUM 1.4 mg/dL (0.6-1.3); POTASSIUM - SERUM 3.7 mmol/L (3.5-5.1)
--- NOTE | 2018-09-13 07:45 | NUR ---
AM ROUNDS COMPLETED. INTRODUCED MYSELF TO PT PRIMARY RN FOR TODAYS SHIFT. PT IS A&O SITTING UP IN BED RESTING QUIETLY. SHIFT ASSESSMENT COMPLETED. PT IS NPO AFTER BREAKFAST FOR CATH PROCEDURE AND VERBALIZED UNDERSTANDING. PT FAMILIAR WITH PROCEDURE HE HAS JUST WENT THROUGH THIS A COUPLE DAYS AGO. RR NONLABORED ON RA AND S1S2 HEART SOUNDS NOTED RRR. PT DENIES ANY QUESTIONS OR PAIN OR NEEDS AT THIS TIME AND JUST WAITING PATIENTLY ON BREAKFAST. CL IN REACH, BED IN LOWEST, SIDE RAILS X2. WILL CPOC.
[2018-09-13 08:05] VITALS: BP 110/71
--- NOTE | 2018-09-13 09:45 | NUR ---
PROVIDED PT WITH ALL HIS MORNING MEDICATIONS ORDERED. PT ATE BREAKFAST AND WILL NOW BE NPO AND VERBALIZED UNDERSTANDING. PT IS WANTING TO GET INTO THE SHOWER. WRAPPED L.FA PIV AND PROVIDED PT WITH SUPPLIES. PT DENIES NEEDING ANY ASSISTANCE. CL IN REACH. WILL CTM.
--- NOTE | 2018-09-13 10:25 | NUR ---
PT COMPLETE WITH SHOWER SO I UNWRAPPED HIS PIV. PT IS SITTING UP IN BED AND DENIES ANY CURRENT NEEDS. PT STATES HE DOES HAVE INSURANCE SO I DID NOTIFY CASE MANAGEMENT TO UPDATE FILES HE DIDNT HAVE IT ON RECORD. CL IN REACH, FAMILY AT BEDSIDE NOW. WILL CPOC.
[2018-09-13 11:38] VITALS: BP 124/70
--- NOTE | 2018-09-13 14:58 | NUR ---
PT BACK FROM WIRELESS ARCHITECT AWAKE ALERT AND ORIENTED LYING FLAT IN BED. VSS AND BEING MONITERED PER POST PROCEDURE PROTOCOL. JEMMA HAS A DRSG CDI NO S/S OF BLEEDING OR HEMATOMA NOTED. PERIPHERAL PULSES INTACT. TELEMETRY BACK IN PLACE AND RUNNING NORMAL SINUS RHYTHM PER MONITER SAMY RAMÍREZ. FAMILY SURROUNDING BEDSIDE AND PT DENIES ANY CURRENT PAIN OR NEEDS AT THIS TIME. PT TO REMAINS FLAT X4HRS AND VERBALIZED UNDERSTANDING. NO CURRENT NEEDS. WILL CTM.
--- NOTE | 2018-09-13 15:06 | OP ---
PATIENT NAME: SARAH HECTOR MEDICAL RECORD: [id number] :55 LOCATION:D.M2 D.2109 ADMISSION DATE:09/10/18 SURGEON: IRMA VO MD DATE OF OPERATION: 09/10/2018 PROCEDURE: Left heart catheterization, selective coronary angiography, right femoral artery approach. CATHETERS: A 5-Malian sheath, 5/4 left and right Davin, 5/4 pig. The procedure was well tolerated. The patient returned to narvaez, sheath removed. ExoSeal device was placed. FINDINGS: Left ventriculography in 30-degree BORDEN view, severe anterior apical hypokinesis. Overall, function reduced at 35%. CORONARY ANATOMY: LEFT MAIN: Free of disease. LAD: Totally occluded in its mid portion. CIRCUMFLEX: Circumflex has a small OM with about 80% stenosis. RIGHT CORONARY ARTERY: Has a severe 90% stenosis in its proximal portion. Poor target distally. IMPRESSION: Plan intervention to the LAD, right at a later date in a staged fashion. DESCRIPTION OF PROCEDURE: A 5-Malian sheath was exchanged for a 6-Malian sheath. A JL3.5 guiding catheter provided good guide catheter support followed by 300 cm Whisper wire, which was placed across the totally occluded LAD down this portion of vessel. Next, this was followed by a 2.5 Euphora balloon, which was inflated up in the LAD, it was actually able to restore CAROLANN flow to 1. Next, we gave IC Integrilin with zoroastrianism of CAROLANN flow up to 2 and 3 proximally. Stent deployed was a 3.0 x 34 mm [place] drug-eluting stent up to 14 atmospheres. Final angiography shows excellent resolution of 100% stenosis, no significant residual. CAROLANN flow was improved to 3 proximally to distally. We will plan for staged intervention of the right in the near future. TRANSINT:[id number] Voice Confirmation ID: [id number] DOCUMENT ID: [id number] IRMA VO MD at 1506 CC: [id number] DICTATION DATE: 09/10/18 1116 AMMONIA SOLUTION PREPARER: 09/10/18 1218 [place] [address]
--- NOTE | 2018-09-13 15:49 | NUR ---
JEMMA DRSG REMAINS CDI NO S/S OF BLEEDING OR HEMATOMA NOTED. PERIPHERAL PULSES INTACT. VSS AND STILL BEING MONITERED. PT REMAINS LYING FLAT IN BED. DENIES ANY CURRENT PAIN OR NEEDS AT THIS TIME. CL IN REACH. FAMILY SURROUNDING BEDSIDE WILL CTM.
--- NOTE | 2018-09-13 17:01 | NUR ---
VSS AND STILL BEING MONITERED PER POST PROCEDURE POLICY. R.GROIN REMAINS CDI NO S/S OF BLEEDING OR HEMATOMA NOTED. PERIPHERAL PULSES INTACT. PT REMAINS FLAT IN BED. CL IN REACH, WILL CTM.
--- NOTE | 2018-09-13 18:45 | NUR ---
PTS 4HR LAY COMPLETED. R.GROIN REMAINS FREE OF BLEEDING OR S/S OF HEMATOMA. WILL BEGIN DISCHARGE PAPERWORK. ASSISTED PT UP IN BED TO SITUP. PT VOICED THANKS AND DENIES ANY PAIN OR NEEDS. WILL CONTINUE WITH PAPERWORK.
[2018-09-13 18:48] VITALS: BP 96/79
--- NOTE | 2018-09-14 08:52 | MORECARE ---
CASE MANAGEMENT DISCHARGE SUMMARY PATIENT: SARAH HECTOR UNIT: [id number] ADM DATE: 09/10/18 AGE: 63 : 55 SEX: M ROOM/BED: D.2109 AUTHOR: VALENTE FIGUEROA PHYSICIAN: REFERRING PHYSICIAN: SALVADOR LEE MD DATE OF SERVICE: 09/14/18 Discharge Plan [facility] 1955 Planned Disposition: Home Anticipated Discharge Date: 09/13/18 Discharge Date: 09/13/2018 Expected LOS: 3 Initial Reviewer: [email or web address] Initial Review Date: 09/14/2018 Generated: 09/14/18 9:52 am Patient Name: SARAH HECTOR Page [id number] at 0852 All edits/amendments must be made on the electronic document DICTATION DATE: 09/14/18 0851 FILM REPRODUCER: WALT 09/14/18 0851 RPT#: [id number] DC DATE:09/13/18 STATUS: DIS IN [facility] [address] [facility] [place] [address] END OF REPORT
--- NOTE | 2018-09-14 13:05 | OP ---
PATIENT NAME: SARAH HECTOR MEDICAL RECORD: [id number] :55 LOCATION:D.M2 D.2109 ADMISSION DATE:09/10/18 SURGEON: IRMA VO MD DATE OF OPERATION: 09/13/2018 PTCA AND STENT REPORT After 6-[place] sheath was placed in the right femoral artery, hockey stick guide catheter provided excellent guide catheter support, followed by 300-cm Whisper wire which was placed across the 90% stenosed right coronary down the distal portion of this vessel. Stent deployed was a 3.0 x 18 Rashad drug-eluting stent up to 14, 16, and finally 18 atmospheres for 45 seconds. Final angiography shows excellent resolution of 90% stenosis. No significant residual. CAROLANN flow was 3 throughout the procedure. Sheath was closed with ExoSeal device. The patient was previously on Plavix. Heparin was used during the case. TRANSINT:[id number] Voice Confirmation ID: [id number] DOCUMENT ID: [id number] IRMA VO MD at 1305 CC: [id number] DICTATION DATE: 09/13/18 1453 DOPE WORKER: 09/13/18 1507 DIS IN 09/13/18 [facility] [address] [place] [address]
== END 2018-09-13 20:06 | disposition home or self-care (01) ==
LOC: D.ER 23:12 → D.M2 09-10 00:17 → OBSVTIME 09-10 00:17 → D.M2 09-10 14:28
PROVIDERS: Emergency Medicine; Internal Medicine Interventional Cardiology; ADMIT Internal Medicine Nephrology; ATTEND Internal Medicine Nephrology
DX: I21.4 Non-ST elevation (NSTEMI) myocardial infarction (principal); I10 Essential (primary) hypertension; D64.9 Anemia, unspecified; E87.1 Hypo-osmolality and hyponatremia